=== PATIENT | male | born 1995 | race Caucasian/White ===

== ENCOUNTER 2022-08-04 16:02 | Emergency (ER) | payer MEDICAID ==
[~2022-08-04] VITALS: Ht 167.6 cm; Wt 59.0 kg
[2022-08-04 16:19] VITALS: BP 165/114
[2022-08-04] MEDS ORDERED: NACL 0.9% 1,000 ML IV ONE (16:40)
[2022-08-04] MEDS ORDERED: ONDANSETRON 4 MG/2 ML VIAL IVP ONE (16:40)
[2022-08-04] MEDS ORDERED: LORazepam 2 MG/ML VIAL IVP ONE (16:40)
--- NOTE | 2022-08-04 16:45 | NUR ---
PT C/O CHEST PAIN AND SOB AFTER SMOKING [place] AN HOUR AGO. NO ACUTE DISTRESS.
[2022-08-04 16:49] LABS: BASOPHILS # (AUTO) 0.1 K/uL (0.00-0.22); BASOPHILS % (AUTO) 0.8 % (0.0-2.0); EOSINOPHILS # (AUTO) 0.1 K/uL (0-0.4); EOSINOPHILS % (AUTO) 1.1 % (0.0-4.0); HEMATOCRIT 48.4 % (36-52); HEMOGLOBIN 16.7 g/dL (12.0-18.0); LYMPHOCYTES # (AUTO) 3.4 K/uL (2.0-11.5); MEAN CORPUSCULAR HEMOGLOBIN 30 pg (27-31); MEAN CORPUSCULAR HGB CONC 35 g/dL (33-37); MEAN CORPUSCULAR VOLUME 85.9 fL (80-94); MONOCYTES % (AUTO) 9.3 % (1.7-9.3); NEUTROPHILS # (AUTO) 6.4 K/uL (1.8-7.7); NEUTROPHILS % (AUTO) 57.8 % (42.2-75.2); PLATELET COUNT (AUTO) 244 K/uL (140-450); RED BLOOD CELL COUNT(AUTO) 5.63 MIL/uL (4.20-6.10); RED CELL DISTRIBUTION WIDTH 13.2 % (11.6-13.7)
[2022-08-04 17:12] LABS: ALBUMIN 4.5 g/dL (3.4-5.0); ANION GAP 11.8 (8-16); ASPARTATE AMINOTRANSFERASE 68 U/L (15-37); CARBON DIOXIDE 29.1 mmol/L (21-32); CHLORIDE 102 mmol/L (98-107); CREATININE 1.2 mg/dL (0.6-1.3); GFR ARICAN-AMERICAN 92 mL/min (>90); GLUCOSE 115 mg/dL (74-106); POTASSIUM 3.9 mmol/L (3.5-5.1); SODIUM SERUM 139 mmol/L (136-145); TOTAL BILIRUBIN 0.7 mg/dL (0.0-1.0); UREA NITROGEN, BLOOD 15 mg/dL (7-18)
--- NOTE | 2022-08-04 18:37 | NUR ---
PT STATES HE FEELS BETTER WITHOUT PAIN, 0/10 PAIN.
--- NOTE | 2022-08-04 19:45 | NUR ---
CALLED WANT TO UPDATE
--- NOTE | 2022-08-04 20:00 | NUR ---
PT HAD A QUESTIONS ABOUT HIS DIAGNOSIS. NOTIFIED.
--- NOTE | 2022-08-04 20:19 | NUR ---
AT THE BEDSIDE EXPLAINING THE DIAGNOSIS TO THE PATIENT
[2022-08-04 20:23] VITALS: BP 129/82
--- NOTE | 2022-08-04 21:19 | NUR ---
Patient discharged with v/s stable. Written and verbal after care instructions given and explained. Patient verbalized understanding. Ambulatory with steady gait. All questions addressed prior to discharge. Advised to follow up with PMD. PT LEFT WITH HIS BELONGINGS.
== END 2022-08-04 20:23 | disposition home or self-care (01) ==
LOC: MED 16:02
DX: R07.9 Chest pain, unspecified (principal); R00.2 Palpitations; F12.90 Cannabis use, unspecified, uncomplicated; Z88.0 Allergy status to penicillin; Z79.899 Other long term (current) drug therapy
CPT/HCPCS: 36415; 71045; 80053; 84484; 85025; 85379; 93005; 96361; 96374; 96375; 99285; J2060; J2405; J7030; Q0092

== ENCOUNTER 2022-10-31 18:05 | Emergency (ER) | payer MEDICAID ==
[~2022-10-31] VITALS: Ht 167.6 cm; Wt 70.3 kg
[2022-10-31 18:24] VITALS: BP 129/86; PULSE 99; RESP 20; TEMP 97.6; O2SAT 100
[2022-10-31 18:52] VITALS: BP 129/86; PULSE 99; RESP 20; TEMP 97.6
[2022-10-31] MEDS ORDERED: IBUP-1842 PO (18:52)
[2022-10-31] MEDS ORDERED: SULF-59 PO (18:52)
[2022-10-31 18:53] VITALS: O2SAT 99
--- NOTE | 2022-10-31 19:01 | NUR ---
PATIENT PRESENTS TO ED WITH PILONIDIAL CYST. PT STATES HE WAS SITTING IN [place]ASS AND IT COULD BE A BUG BITE. DENIES N/V/D; SKIN IS PINK/WARM/DRY; AAOX4 WITH EVEN AND STEADY GAIT; LUNGS CLEAR BL; HR EVEN AND REGULAR; PT DENIES ANY FEVER, CP, SOB, OR COUGH AT THIS TIME; PATIENT STATES PAIN OF 0/10 AT THIS TIME; VSS; PATIENT POSITIONED FOR COMFORT; HOB ELEVATED; BEDRAILS UP X2; BED DOWN. ER MD MADE AWARE OF PT STATUS. PT STATES HE HAS HAD CYST IN THE [place]ASS BEFORE. PMHX CYST HCL HIGH
--- NOTE | 2022-10-31 19:04 | NUR ---
Patient discharged with v/s stable. Written and verbal after care instructions given and explained. Patient verbalized understanding. Ambulatory with steady gait. All questions addressed prior to discharge. Advised to follow up with PMD.
== END 2022-10-31 19:04 | disposition home or self-care (01) ==
LOC: MED 18:05
DX: L05.91 Pilonidal cyst without abscess (principal); Z79.1 Long term (current) use of non-steroidal anti-inflammatories (NSAID); Z79.2 Long term (current) use of antibiotics; Z88.0 Allergy status to penicillin
CPT/HCPCS: 99282